=== PATIENT | female | born 1980 | race African-American/Black ===

== ENCOUNTER → 2016-05-10 16:52 | Outpatient (CLI) | payer MEDICAID ==
[2015-06-11 09:09] VITALS: BMI 24.7
[~2016-05-10 16:52] MED LIST: ARISTOCORT 0.5%15 GM TOPICAL; HYDROCODON-ACE1 EAC7 PO; LIDEX 0.05% OIN15 GM TOPICAL; PEPCID40 MG PO; PROTONIX40 MG PO; SPRINTEC1 TAB PO
== END | disposition home or self-care (01) ==
LOC: D.MAMMO 15:00
DX: Z12.31 Encounter for screening mammogram for malignant neoplasm of breast (principal)

== ENCOUNTER 2016-09-16 06:09 | Day surgery (SDC) | payer MEDICAID ==
[~2016-09-16] VITALS: Ht 167.6 cm; Wt 68.0 kg
--- NOTE | ~2016-09-16 | HP ---
PATIENT: SALVATORE BUSTAMANTE MEDICAL RECORD: [id number] ACCOUNT: [id number] LOCATION:[facility] : 80 ADMISSION DATE: 09/16/16 HISTORY AND PHYSICAL EXAMINATION HISTORY OF PRESENT ILLNESS: The patient is her for esophagogastroduodenoscopy with probable epinephrine injection, snare polypectomy, tattooing and argon plasma coagulation therapy. The patient has had a prior granular cell tumor. I performed an EGD on the patient in May 2015. The patient had a gastric polyp at that time. 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 I rebiopsied that site there was an incipient granular cell tumor, which was less than 1 mm in the muscular layer. Since that time, the patient has undergone an esophagogastroduodenoscopy by Dr. Cosme. She was having some odynophagia. She was referred to me with a gastric mass. The patient does have reflux. She has noted no blood in her stools. No tarry stools. She is not on a blood thinner. No history of Crohn disease. 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 I am going to plan to remove it utilizing the argon plasma seed collector. ALLERGIES: No known drug allergies. HOME MEDICATIONS: Sprintec, Pepcid and Protonix. SOCIAL HISTORY: Nonsmoker. PAST MEDICAL AND SURGICAL HISTORY: Granular cell tumor of the esophagus, hiatal hernia and gastroesophageal reflux. REVIEW OF SYSTEMS: Negative for CVA or seizures. Negative for diabetes or thyroid problems. Negative for renal disease or hepatitis. PHYSICAL EXAMINATION: GENERAL: The patient does not appear acutely ill. She does not appear chronically ill. VITAL SIGNS: Reviewed. HEAD: External ears appear normal. EYES: Extraocular movements are intact. NECK: Trachea is midline. CHEST: No intercostal retractions. PULMONARY: Nonlabored, no stridor. ABDOMEN: Nontender. EXTREMITIES: No peripheral cyanosis. IMPRESSION: Gastric mass. PLAN: EGD, possible epinephrine injection, possible snare polypectomy, possible ablation with the argon plasma seed collector. The risks, possible complications and alternatives to the procedure were explained to the patient. She elects to proceed. The discussion specifically included bleeding requiring emergency reoperation, infection, as well as endoscopic perforation. TRANSINT:[id number] Voice Confirmation ID: [id number] DOCUMENT ID: [id number] HISTORY AND PHYSICAL [id number] SALVATORE BUSTAMANTE ROBERT MD CC: BRANDI HERRING MD, HARIKA COSME MD and LEIGHTON VELASCO MD [id number] DICTATION DATE: 09/16/16929 ENTRY LEVEL RECEPTIONIST: 09/16/16 1136 [facility] [address] [id number]
--- NOTE | ~2016-09-16 | OP ---
PATIENT NAME: SALVATORE BUSTAMANTE MEDICAL RECORD: [id number] :80 LOCATION:D.OPS ADMISSION DATE: SURGEON: VAHID HOUSTON MD DATE OF OPERATION: 09/16/2016 PREOPERATIVE DIAGNOSES: 1. Gastric mass. 2. History of granular cell tumor of the esophagus. 3. History of inlet patch. POSTOPERATIVE DIAGNOSES: 1. Gastric mass 2. History of granular cell tumor of the esophagus. 3. History of inlet patch. PROCEDURES: 1. Esophagogastroduodenoscopy. 2. Snare piecemeal polypectomy of the antral gastric mass. 3. Epinephrine injection at the base of the mass for hemostasis. 4. Argon plasma coagulation therapy to ablate the remainder of the tissue. SURGEON: Vahid Houston MD HAIR CUTTER: None. BLOOD LOSS: Minimal. ANESTHESIA: General. COMPLICATIONS: None. The risks, possible complications and alternatives to the procedure were explained to the patient. She elects to proceed. OPERATIVE COURSE: The patient was conveyed to the operating room electively on 09/16/2016. General anesthesia was induced by anesthesia staff. A bite block was inserted. A gastroscope was inserted into the mouth. It was advanced easily into the hypopharynx. The esophagus was easily intubated as were the stomach and duodenum. Upon withdrawal, retroflexed and angulus views were obtained. I then advanced a sclerotherapy needle. Epinephrine was injected at the base of the polyp for hemostasis. I then advanced a snare. I was able to snare the base of the polyp, which was a wide-based polyp. This was a sessile mass. I first used the coagulation setting and then the cut setting. This removed the top of the mass. An endoscopic retrieval net was advanced and I grasped the excised tissue and withdrew it out through the mouth. I reintubated the patient's esophagus and stomach. Multiple cold biopsies were obtained of some remaining polypoid tissue. Once I had removed all of the polypoid tissue that I could identify, I cauterized the base of the polyp with the argon plasma civil rights investigator utilizing the esophageal setting in the forced mode. I then slowly withdrew the endoscope. I will see the patient in my office in 2-3 weeks. TRANSINT:[id number] Voice Confirmation ID: [id number] DOCUMENT ID: [id number] OPERATIVE REPORT [id number] JOHNNY BUSTAMANTEFabiana VAHID PARRY MD CC: BRANDI HERRING MD, HARIKA BAXTER MD and LEIGHTON VELASCO MD [id number] DICTATION DATE: 09/16/16 110 TIRE BUFFER: 09/16/162033 [facility] [place] 09/16/[id number] [place] [address]
[~2016-09-16 06:09] MED LIST changes: +FERROUS SULFAT325 MG PO; +[UNRECOGNIZED DRUG - OTHER] TP
[2016-09-16 07:34] LABS: HEMATOCRIT 37.2 % (36.0-48.0); MCH 26.9 pg (26.0-34.0); MCHC 32.3 g/dL (31.0-37.0); MCV 83.4 fL (80.0-100.0); MEAN PLATELET VOLUME 9.7 fL (7.4-10.4); RBC 4.46 10x6/uL (4.00-5.40); RDW 12.9 % (11.5-14.5); WBC 9.5 10x3/uL (4.8-10.8)
[2016-09-16 08:06] VITALS: Ht 167.6 cm; Wt 68.0 kg
[2016-09-16 08:31] LABS: HCG URINE NEGATIVE (NEGATIVE)
--- NOTE | 2016-09-16 11:44 | NUR ---
1130-RECD FROM PACU. DROWSY. RESP WITH EASE. IV PATENT. SOME NAUSEA. ZOFRAN GIVEN IN PACU.
--- NOTE | 2016-09-16 16:33 | NUR ---
RIDE HERE AT 1400
== END 2016-09-16 14:00 | disposition home or self-care (01) ==
LOC: D.OPS 06:09 → D.PAN 08:45 → D.OPS 11:30 → D.PAN 11:30 → D.OPS 14:00
PROVIDERS: Anesthesiology; Surgery
DX: R19.09 Other intra-abdominal and pelvic swelling, mass and lump (principal); K21.9 Gastro-esophageal reflux disease without esophagitis; K44.9 Diaphragmatic hernia without obstruction or gangrene; Z01.812 Encounter for preprocedural laboratory examination

== ENCOUNTER 2017-01-22 13:42 | Emergency (ER) | payer MEDICAID ==
[2016-09-16 08:06] VITALS: BMI 24.2
[2017-01-22 15:02] LABS: APPEARANCE CLEAR (CLEAR); BILIRUBIN NEGATIVE (NEGATIVE); COLOR YELLOW (YELLOW); GLUCOSE NEGATIVE (NEGATIVE); KETONE NEGATIVE (NEGATIVE); NITRITE NEGATIVE (NEGATIVE); PROTEIN NEGATIVE (NEGATIVE); SPECIFIC GRAVITY 1.005 (1.005-1.020); UROBILINOGEN NORMAL (NORMAL)
[2017-01-22 15:04] LABS: BACTERIA FEW /hpf (NONE SEEN); RED CELLS - URINE OCC /hpf (0-5); WHITE CELLS - URINE OCC /hpf (0-5)
[2017-01-22 15:05] LABS: HCG URINE NEGATIVE (NEGATIVE)
[2017-01-22 15:20] LABS: BASOPHILS 0.4 % (0-2); EOSINOPHILS 0.9 % (0-7); HEMATOCRIT 34.6 % (36.0-48.0); HEMOGLOBIN 11.2 g/dL (12-16); IMMATURE GRANULOCYTES 0.2 % (0-5); LYMPHOCYTES 26.1 % (15-50); MCH 25.9 pg (26.0-34.0); MCHC 32.4 g/dL (31.0-37.0); MCV 80.1 fL (80.0-100.0); MEAN PLATELET VOLUME 9.3 fL (7.4-10.4); MONOCYTES 9.7 % (2-11); NEUTROPHILS 62.7 % (40-80); PLATELET COUNT 347 10x3/uL (130-400); RBC 4.32 10x6/uL (4.00-5.40); RDW 13.9 % (11.5-14.5); WBC 5.6 10x3/uL (4.8-10.8)
[2017-01-22 15:38] LABS: ALBUMIN 3.3 g/dL (3.4-5.0); ALKALINE PHOSPHATASE 37 U/L (46-116); ALT (SGPT) 12 U/L (10-68); BILIRUBIN - TOTAL 0.19 mg/dL (0.2-1.3); CALC OSMOLALITY 279 mosm/kg (275-300); CALCIUM 8.7 mg/dL (8.5-10.1); CARBON DIOXIDE 26.5 mmol/L (21.0-32.0); CHLORIDE - SERUM 107 mmol/L (98-107); CREATININE - SERUM 0.8 mg/dL (0.6-1.3); GLUCOSE 87 mg/dL (74-106); POTASSIUM - SERUM 3.5 mmol/L (3.5-5.1); PROTEIN - SERUM 7.5 g/dL (6.4-8.2); SODIUM 142 mmol/L (136-145); UREA NITROGEN 6 mg/dL (7-18); eGFR NON AFRICAN AMERICAN 86 mL/min (90-120)
== END 2017-01-22 18:20 | disposition home or self-care (01) ==
LOC: D.ER 13:42
PROVIDERS: Physician Assistant Medical
DX: N94.6 Dysmenorrhea, unspecified (principal); N93.8 Other specified abnormal uterine and vaginal bleeding; K21.9 Gastro-esophageal reflux disease without esophagitis

== ENCOUNTER 2017-08-08 18:40 | Emergency (ER) | payer MEDICAID ==
[2016-09-16 08:06] VITALS: BMI 24.2
== END 2017-08-08 21:10 | disposition home or self-care (01) ==
LOC: D.ER 18:40
DX: B34.9 Viral infection, unspecified (principal)

== ENCOUNTER 2017-09-28 05:50 | Inpatient (IN) | payer MEDICAID ==
[2017-09-27 09:26] LABS: BASOPHILS 0.2 % (0-2); EOSINOPHILS 1.4 % (0-7); HEMATOCRIT 33.8 % (36.0-48.0); HEMOGLOBIN 10.2 g/dL (12-16); IMMATURE GRANULOCYTES 0.2 % (0-5); LYMPHOCYTES 22.1 % (15-50); MCH 22.1 pg (26.0-34.0); MCHC 30.2 g/dL (31.0-37.0); MCV 73.2 fL (80.0-100.0); MEAN PLATELET VOLUME 9.3 fL (7.4-10.4); MONOCYTES 6.9 % (2-11); NEUTROPHILS 69.2 % (40-80); RBC 4.62 10x6/uL (4.00-5.40); RDW 15.7 % (11.5-14.5); WBC 8.6 10x3/uL (4.8-10.8)
[2017-09-27 09:44] LABS: PLATELET COUNT 554 10x3/uL (130-400)
[2017-09-27 09:51] LABS: CALC OSMOLALITY 274 mosm/kg (275-300); CALCIUM 9.2 mg/dL (8.5-10.1); CARBON DIOXIDE 25.2 mmol/L (21.0-32.0); CHLORIDE - SERUM 104 mmol/L (98-107); CREATININE - SERUM 0.8 mg/dL (0.6-1.3); GLUCOSE 86 mg/dL (74-106); POTASSIUM - SERUM 3.1 mmol/L (3.5-5.1); SODIUM 139 mmol/L (136-145); UREA NITROGEN 8 mg/dL (7-18); eGFR NON AFRICAN AMERICAN 85 mL/min (90-120)
[2017-09-28] VITALS (15 sets, daily range): BP systolic 96–131; BP diastolic 51–88; Ht 167.6 cm; Wt 63.2 kg
[~2017-09-28] VITALS: Ht 167.6 cm; Wt 63.2 kg
--- NOTE | ~2017-09-28 | OP ---
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 PROCEDURES: Exploratory laparotomy and right ovarian cystectomy. SURGEON: Pawel Haile MD ESTIMATED BLOOD LOSS: Minimal. INTRAVENOUS FLUIDS: Per anesthesia records. SPECIMENS: Partial ovarian cyst. OPERATIVE DIAGNOSIS: Right mature teratoma. FINDINGS: Absent left ovary, right ovary with 2 cysts, 1 consistent with a dermoid tumor, second consistent with serous cystadenoma. A small fibroid was noted in the fundal portion of the uterus. PROCEDURE IN DETAIL: The patient was taken to the operating room where general anesthesia was achieved without difficulty. The patient was then prepped and draped in normal sterile fashion in the dorsal supine position. A Lamas catheter had been placed. At this point, a Pfannenstiel skin incision was made, extended downward to the underlying subcutaneous fat to the level of the fascia, which was then excised in the midline and extended bilaterally using the Garrett scissors. Superior and inferior aspects of the fascial incision were then grasped with Dixon clamps times 2, tented upward, and sharply dissected from the underlying rectus muscle using the Garrett scissors and Bovie cautery. The rectus muscles were then bluntly in midline. The peritoneum entered sharply at the superior aspect of the incision using the Metzenbaum scissors. Following extension of the peritoneal incision, the uterus was identified and grasped at its left cornua using a Tasia clamp. Attention was then turned to the right ovary approximately 3 cm cyst was removed using the Bovie cautery and DeBakey pickups were used to remove the cyst wall with good hemostasis noted. The approximately 3-4 cm dark brown appearing dermoid cyst was identified and found to extend all the way to the infundibulopelvic ligament. This was opened at the top of the cyst though farther most point away from the blood supply, dark brown fatty material was then suctioned from the cyst. Cyst wall was removed as best as possible with not disrupting the ovarian blood supply. The Bovie cautery was then used to fulgurate the cyst cavity with good hemostasis noted. Surgicel was then placed into the cyst sites and the ovary was wrapped in Interceed. Counts were correct times 2 and the fascia was then repaired with 0 looped PDS times 1 and the skin repaired with a running subcutaneous 3-0 Monocryl and Dermabond. The patient tolerated the procedure well and was transported to the OPERATIVE REPORT [id number] SALVATORE BUSTAMANTE postanesthesia recovery stable without incident. TRANSINT:[id number] Voice Confirmation ID: [id number] DOCUMENT ID: [id number] PAWEL HAILE MD at 1844 CC: [id number] DICTATION DATE: 10/13/172118 IMAGER: 10/13/172258 [facility] 09/30/17 [id number] [place] [address]
[~2017-09-28 05:50] MED LIST changes: +PEPCID20 MG PO; -PEPCID40 MG PO
[2017-09-28 06:24] LABS: HCG URINE NEGATIVE (NEGATIVE)
[2017-09-29 00:10] VITALS: BP 99/64
[2017-09-29 04:14] VITALS: BP 108/56
[2017-09-29 05:29] LABS: BASOPHILS 0.2 % (0-2); EOSINOPHILS 0.7 % (0-7); HEMATOCRIT 28.3 % (36.0-48.0); HEMOGLOBIN 8.3 g/dL (12-16); IMMATURE GRANULOCYTES 0.3 % (0-5); LYMPHOCYTES 18.6 % (15-50); MCH 21.6 pg (26.0-34.0); MCHC 29.3 g/dL (31.0-37.0); MCV 73.7 fL (80.0-100.0); MEAN PLATELET VOLUME 9.2 fL (7.4-10.4); MONOCYTES 7.6 % (2-11); NEUTROPHILS 72.6 % (40-80); RBC 3.84 10x6/uL (4.00-5.40); RDW 15.8 % (11.5-14.5); WBC 10.3 10x3/uL (4.8-10.8)
[2017-09-29 05:33] LABS: PLATELET COUNT 433 10x3/uL (130-400)
[2017-09-29 05:42] LABS: CALC OSMOLALITY 274 mosm/kg (275-300); CARBON DIOXIDE 25.4 mmol/L (21.0-32.0); CHLORIDE - SERUM 107 mmol/L (98-107); CREATININE - SERUM 0.6 mg/dL (0.6-1.3); GLUCOSE 101 mg/dL (74-106); POTASSIUM - SERUM 3.4 mmol/L (3.5-5.1); SODIUM 139 mmol/L (136-145); eGFR NON AFRICAN AMERICAN > 90 mL/min (90-120)
[2017-09-29 05:44] LABS: UREA NITROGEN 4 mg/dL (7-18)
[2017-09-29 08:00] VITALS: BP 108/70
[2017-09-29 08:42] LABS: BASOPHILS 0.1 % (0-2); EOSINOPHILS 0.6 % (0-7); HEMATOCRIT 29.5 % (36.0-48.0); HEMOGLOBIN 8.7 g/dL (12-16); IMMATURE GRANULOCYTES 0.2 % (0-5); LYMPHOCYTES 17.3 % (15-50); MCH 21.8 pg (26.0-34.0); MCHC 29.5 g/dL (31.0-37.0); MCV 73.8 fL (80.0-100.0); MEAN PLATELET VOLUME 9.4 fL (7.4-10.4); NEUTROPHILS 73.8 % (40-80); PLATELET COUNT 429 10x3/uL (130-400); RDW 15.6 % (11.5-14.5)
[2017-09-29 13:39] VITALS: BP 122/71
[2017-09-29 19:11] VITALS: BP 112/74
[2017-09-30 07:18] VITALS: BP 120/73
[2017-09-30] MEDS ORDERED: HYDROCODONE-APA1 TAB PO (11:55)
[2017-09-30] MEDS ORDERED: IBUPROFEN600 MG PO (11:56)
== END 2017-09-30 13:05 | disposition home or self-care (01) | DRG 743 ==
LOC: D.SDCHOLD 05:50 → D.WS 05:50 → D.OPS 07:30 → EDSTATUS 07:30 → D.PAN 07:30 → D.LD 09:01 → D.WS 09:38 → D.LD 09-29 14:30
PROVIDERS: Obstetrics & Gynecology
PROC: 0UB00ZZ Excision of Right Ovary, Open Approach (ICD-10-PCS; principal; 2017-09-29)
DX: D27.0 Benign neoplasm of right ovary (principal); D64.9 Anemia, unspecified; K21.9 Gastro-esophageal reflux disease without esophagitis

== ENCOUNTER 2018-05-14 22:14 | Emergency (ER) | payer MEDICAID ==
[~2018-05-14] VITALS: Ht 167.6 cm; Wt 65.9 kg
[~2018-05-14 22:14] MED LIST changes: +HYDROCODONE-APA1 TAB PO; +IBUPROFEN600 MG PO
[2018-05-14 22:27] VITALS: Ht 167.6 cm; Wt 65.9 kg
[2018-05-14 23:19] LABS: APPEARANCE CLEAR (CLEAR); BILIRUBIN NEGATIVE (NEGATIVE); COLOR YELLOW (YELLOW); GLUCOSE NEGATIVE (NEGATIVE); KETONE NEGATIVE (NEGATIVE); NITRITE NEGATIVE (NEGATIVE); PROTEIN NEGATIVE (NEGATIVE); UROBILINOGEN NORMAL (NORMAL)
[2018-05-14 23:21] LABS: BACTERIA NONE SEEN /hpf (NONE SEEN); EPITHELIAL CELLS 0-5 /hpf (0-5); WHITE CELLS - URINE NSEEN /hpf (0-5)
[2018-05-14 23:52] VITALS: BP 112/81
== END 2018-05-14 23:52 | disposition home or self-care (01) ==
LOC: D.ER 22:14
PROVIDERS: Emergency Medicine
DX: B34.9 Viral infection, unspecified (principal); R11.0 Nausea